=== PATIENT | male | born 1950 | race Caucasian/White ===

== ENCOUNTER 2017-11-13 05:51 | Day surgery (SDC) | payer MEDICARE ==
[2017-11-12 11:33] VITALS: BMI 26.8
[2017-11-13] MEDS ORDERED: Bupivacaine/Epinephrine 0.25% 30 ML VIAL ONE (06:30)
[2017-11-13 06:46] LABS: Anion Gap 11 mmol/L (10-20); BUN (Urea Nitrogen) 20 mg/dL (8.4-25.7); Calc. Creatinine Clearance 78 mL/min (70-130); Calcium 9.7 mg/dL (7.8-10.44); Carbon Dioxide 24 mmol/L (23-31); Chloride 105 mmol/L (98-107); Estimated GFR-MDRD 64; Glucose 125 mg/dL (80-115); Potassium 4.2 mmol/L (3.5-5.1); Sodium 136 mmol/L (136-145)
[2017-11-13 06:47] LABS: #Basophils 0.1 thou/uL (0.0-0.2); #Eosinphils 0.1 thou/uL (0.0-0.7); #Lymphocytes 3.9 thou/uL (1.20-3.40); #Monocytes 0.5 thou/uL (0.11-0.59); #Neutrophils 3.9 thou/uL (1.40-6.50); %Basophils 1.2 % (0.0-1.0); %Eosinophils 1.4 % (0.0-10.0); %Lymphocytes 45.6 % (21.0-51.0); %Monocytes 6.3 % (0.0-10.0); %Neutrophils 45.6 % (42.0-75.0); Hemoglobin 14.9 g/dL (14.0-18.0); Mean Corpuscular HGB CONC 33.2 g/dL (32.0-36.0); Mean Corpuscular Hemoglobin 33.2 pg (27.0-31.0); Mean Platelet Volume 9.2 fL (7.4-10.4); Platelet Count 195 thou/uL (130-400); RBC Distribution Width 13.9 % (11.5-14.5); Red Blood Cell (RBC) Count 4.49 mill/uL (4.70-6.10); White Blood Cell (WBC) Count 8.5 thou/uL (4.8-10.8)
[2017-11-13] MEDS ORDERED: Ketorolac Tromethamine 30 MG/ML VIAL ONE (06:49)
[2017-11-13] MEDS ORDERED: CEFAZOLIN/Water 2 GM/20 ML SYRINGE ONE (06:49)
[2017-11-13] MEDS ORDERED: Midazolam HCl 2 mg/2 ml Vial ONE (07:22)
[2017-11-13] MEDS ORDERED: Fentanyl 100 MCG/2 ML VIAL ONE ×2 (07:32→09:55)
[2017-11-13] MEDS ORDERED: Lidocaine 1% PF 5 ML VIAL ONE (11:16)
[2017-11-13] MEDS ORDERED: PROPOFOL 200 MG/20 ML VIAL ONE (11:16)
[2017-11-13] MEDS ORDERED: HYDROcodone/Acetaminophen 5/325 mg Tablet ONE (11:37)
--- NOTE | 2017-11-13 16:37 | EKG ---
Test Reason : PREOP Blood Pressure : / mmHG Vent. Rate : 072 BPM Atrial Rate : 072 BPM P-R Int : 182 ms QRS Dur : 098 ms QT Int : 380 ms P-R-T Axes : 064 045 038 degrees QTc Int : 416 ms Normal sinus rhythm Normal ECG Confirmed by CHONG INGRAM ([id number]) on 11/13/2017 4:36:58 PM Referred By: ALISSON Confirmed By:CHONG INGRAM
--- NOTE | 2017-11-14 10:15 | OP ---
DATE OF PROCEDURE: 11/13/2017 PREOPERATIVE DIAGNOSIS: Bilateral inguinal hernia. POSTOPERATIVE DIAGNOSIS: Bilateral inguinal hernia, indirect on the right with an indirect and direc t hernia on the left. OPERATION PERFORMED: Bilateral inguinal hernia repair with ProGrip mesh patch. SURGEON: Arnaud Nichole M.D. ANESTHESIA: General endotracheal. INDICATIONS: The patient is a 67-year-old white male. He presents with symptomatic bilateral inguin al hernias and is taken to the operating room at this time for repair. OPERATIVE PROCEDURE IN DETAIL: Informed consent was obtained. [facility] general endotracheal anesthesia was obtained with the patient in supine position. Ruvalcaba catheter was placed, abdomen was trimmed of hair, prepped with ChloraPrep and draped in sterile [facility] ion. Local anesthetic was infiltrated and a 12 mm supraumbilical incision was created through which a Veress needle was passed into the peritoneal cavity and pneumoperitoneum established using carbon d ioxide up to a pressure of 15 mmHg. Under direct vision, 2 additional 8 mm robotic ports were placed on either side of midline at the level of the umbilicus. The robot was docked to the ports and the camera and the operation was continued from the robotic console. Examination was made of the bilater al pelvic region. The right inguinal hernia was easily visible. The left inguinal hernia was less e asily visible. Attention was turned first to the right. A transverse peritoneal incision was create d several centimeters superior to the hernia. Preperitoneal dissection was carried inferiorly. The lateral aspect was cleared for mesh placement. Medially, the pubic tubercle and Sly's ligament we re dissected. The hernia sac was dissected away from the cord structures, maintaining meticulous hem ostasis. This was a substantial indirect hernia. The peritoneum was dissected off of the cord struc tures and the vas deferens. ProGrip mesh patch was obtained and placed within the preperitoneal spac e where it was unfurled in a longitudinal fashion. It was positioned to give wide coverage medially, superiorly, and inferiorly. It was fixed to the underlying tissue with pressure in the usual fashio n. The peritoneum was then closed with a running suture of 3-0 Stratafix. Attention was turned to the left side. A mirror image incision was created on the right. Dissection was carried out in a similar fashion. There was found to be a substantial cord lipoma as well as an obvious indirect hernia defect and a direct hernia defect. These were both present, but neither one was particularly large. A mirror image mesh patch was obtained and unfurled in a similar fashion. Once it was appropriately deployed, the peritoneum was again closed with a Stratafix. The fascia at the supraumbilical port site was closed with 0 Vicryl suture using a GraNee needle. Th e other port sites were removed under direct vision. Pneumoperitoneum was carefully evacuated. Quar ter percent Marcaine with epinephrine was infiltrated in each port site. Skin edges approximated wit h 4-0 Monocryl subcuticular suture. Dermabond was placed externally. There were no complications. The patient tolerated the procedure well and was taken to recovery room in stable condition.
== END 2017-11-13 12:00 | disposition home or self-care (01) ==
LOC: SDC 05:51
PROVIDERS: ATTEND Specialist
PROC: 0YUA4JZ Supplement Bilateral Inguinal Region with Synthetic Substitute, Percutaneous Endoscopic Approach (ICD-10-PCS; principal; 2017-11-13)
DX: K40.20 Bilateral inguinal hernia, without obstruction or gangrene, not specified as recurrent (principal); D17.6 Benign lipomatous neoplasm of spermatic cord; Z79.899 Other long term (current) drug therapy; Z88.2 Allergy status to sulfonamides; Z90.89 Acquired absence of other organs; Z98.890 Other specified postprocedural states; Z87.81 Personal history of (healed) traumatic fracture
CPT/HCPCS: 36415; 80048; 85025; 93005; 93010; 96374; J0131; J1885; J2001; J2250; J2704; J3010

== ENCOUNTER 2019-07-01 08:28 | Outpatient (CLI) | payer MEDICARE ==
--- NOTE | 2019-07-01 12:06 | MRI ---
EXAM: MRI of the pelvis/prostate without and with contrast HISTORY: Prostate cancer COMPARISON: None TECHNIQUE: Multiplanar multisequence MR images were obtained of the pelvis without and with IV contra st. Evaluation of this exam was performed with a [email or web address] workstation. FINDINGS: Central gland: Moderate hypertrophy of the central gland consistent with BPH. There is a prominent me eneida lobe of the prostate. No suspicious low T2 signal lesion is seen. Peripheral zone: No restricted diffusion is seen. No low signal on ADC map. Seminal vesicles: Intact without abnormality Neurovascular bundles: Intact Pelvic lymph nodes: No pelvic adenopathy Other visualized intrapelvic structures: Scattered diverticula in the colon. Osseous structures: No marrow signal abnormality IMPRESSION: 1. PI-RADS Category 2-low likelihood that a clinically significant cancer is present. 2. Diverticulosis
[2019-07-01] MEDS ORDERED: Gadobenate Dimeglumine 529 MG/1 ML (20ML VIAL) ONE (14:59)
== END 2019-07-01 08:29 | disposition home or self-care (01) ==
LOC: TBSIIMAG 08:28
PROVIDERS: ATTEND Urology
DX: C61 Malignant neoplasm of prostate (principal); K57.30 Diverticulosis of large intestine without perforation or abscess without bleeding
CPT/HCPCS: 72197; 82565; A9577